=== PATIENT | male | born 1990 | race Caucasian/White ===

== ENCOUNTER 2017-10-16 21:07 | Emergency (ER) | payer OTHER ==
[~2017-10-16] VITALS: Ht 182.9 cm; Wt 102.1 kg
[2017-10-16] MEDS ORDERED: PROTONIX20 MG (21:23)
== END 2017-10-17 00:03 | disposition home or self-care (01) ==
LOC: ER 21:07
DX: K21.9 Gastro-esophageal reflux disease without esophagitis (principal)